=== PATIENT | male | born 1975 | race Caucasian/White ===

== ENCOUNTER 2020-04-24 21:37 | Emergency (ER) | payer BC, SELFPAY ==
[2020-04-24 21:37] VITALS: BP 148/100; PULSE 73; RESP 15; TEMP 36.7; O2SAT 97; BMI 31.5
--- NOTE | 2020-04-24 22:10 | EKG12_ITS ---
Test Reason : CP Blood Pressure : / mmHG Vent. Rate : 074 BPM Atrial Rate : 074 BPM P-R Int : 118 ms QRS Dur : 096 ms QT Int : 374 ms P-R-T Axes : 051 010 027 degrees QTc Int : 415 ms Normal sinus rhythm Incomplete right bundle branch block Borderline ECG Confirmed by BARRY BLANCAS, AMI ([id number]), film editor EZEKIEL CR ([id number]) on 04/28/2020 10:22:06 AM Referred By: NEIDA Confirmed By:SIMON REDDY MD
--- NOTE | 2020-04-24 22:17 | ED.DCSUM_ITS ---
- ER Visit Summary Date of Service: 04/24/20 Chief Complaint: Chest pain History of Present Illness: The patient is a 45 M who presents with chest pain and left arm pain that has been intermittent over the past 3 weeks. Patient states his pain is sharp and tight. Patient states the pain is over the left u pper chest and rates into his left shoulder and neck. Patient states nothing makes it better and nothing makes it worse. Patient admits to one episode of subjective chills. Patient states that at times he feels some palpitations where his heart feels like it is racing. Patient also admits to a mild headache. Patient states he feels weak at times. Physical Examination: Vital signs are stable. Patient is afebrile. Patient is in no acute distress. Oral mucosa is pink and moist. Neck is supple. Trachea is midline. There is no JVD noted. Heart was regular rate and rhythm. Lungs are clear and equal bilaterally. Abdomen is soft. Bowel sounds are normal. There is no tenderness. There is no rebound or guarding noted. Skin is warm dry. Cranial nerves II through XII are intact. There are no focal motor or sensory deficits noted. Extremities are intact. There is no calf tenderness or edema. Test Results: EKG was obtained. On my interpretation, there is a normal sinus rhythm with a rate of 74. There are no acute ST or T wave changes. This is unchanged compared to previous EKG dated 10/31/2004. CBC, basic metabolic profile, and troponin were obtained were all within normal limits. Portable chest x-ray was obtained. There is 1 view. On my interpretation, there are bilateral infiltrates. There is no cardiomegaly. Bony thorax is normal. Radiologist also interpreted the x-ray and agrees. Because of the bilateral infiltrates, a COVID-19 rapid antigen test was ordered but the patient refused. CBC shows a normal white blood cell count however the lymphocytes were low at 15.4% basic metabolic profile and troponin were normal. Emergency Department Course and Treatment: Patient was advised of his findings. Patient still refused the COVID-19 antigen test. Patient was advised that his chest x-ray is typical of Covid 19 pneumonia. Patient will be treated as a COVID-19 pneumonia. Patient was instructed to quarantine for the next 10 days. Patient was instructed to follow-up with his primary care physician in 5 to 7 days. Patient understood and was agreeable with the plan. All questions were answered. Disposition: Discharge home Impression: COVID-19 pneumonia This note was generated with [employer] dictation software. It may contain incorrect words, spelling, and punctuation that were not noted in review of the chart prior to signing ED Disposition - Plan for ED Patient: Disposition: Home or Assisted Living Diagnosis: Pneumonia due to COVID-19 virus Instructions: Coronavirus Disease 2019 (COVID-19): Overview, Coronavirus Disease 2019 (COVID-19): Caring for Yourself or Others Referrals: Care Physician,No Primary [Primary Care Provider] - 3-5 Days
--- NOTE | 2020-04-24 22:20 | RAD_ITS ---
CHEST, LEFT ARM AND SHOULDER PAIN X 3 WKS EXAMINATION/TECHNIQUE: XR Chest 1 View: COMPARISON: None FINDINGS: LINES/DEVICES: None. LUNGS: Bilateral airspace opacities most marked in the upper lung valles. No pneumothorax. MEDIASTINUM AND CARDIOVASCULAR STRUCTURES: Cardiac silhouette not enlarged. Central airways and mediastinal contour are unremarkable. BONES AND SOFT TISSUES: Unremarkable. RAD/Chest 1 View (Portable) IMPRESSION: Bilateral pulmonary infiltrates most marked in the upper lung valles at 2257 Reported and signed by: Naomi Linder DO Electronically Signed: Naomi Linder DO at 22:56 EST Tel , Service support ,
[2020-04-24] MEDS: Aspirin 81 MG TAB.CHEW 324 MG PO (22:22)
[2020-04-24 22:31] VITALS: O2SAT 97
[2020-04-24 22:33] LABS: Absolute Lymphocyte Count 0.75 X10^3/uL (0.83-4.51); Absolute Neutrophil Count 3.4 X10^3/uL (2.0-7.7); Basophil# 0.02 X10^3/uL; Basophil% 0.4 % (0-1); Eosinophil# 0.13 X10^3/uL; Eosinophils% 2.7 % (0-5); Hematocrit 46.8 % (40-54); Hemoglobin 15.9 g/dL (13.0-16.5); Lymphocyte # 0.75 X10^3/ul (4.0); Lymphocyte % 15.4 % (19-41); Mean Corpuscular Hgb 30.2 pg (27.0-32.0); Mean Platelet Vol. 9.5 fl (6.2-12.0); Monocyte# 0.57 X10^3/uL; Monocyte% 11.7 % (0-10); NRBC Flagged by Analyzer 0 % (0-5); Neutrophil # 3.37 X10^3/uL (2.7-7.7); Neutrophil % 69.2 % (47-70); Platelet Count 221 K/mm3 (150-450); RBC Distribution Width CV 12.4 % (11.6-14.6); RBC Distribution Width SD 40.3 fl (35.1-43.9); Red Blood Count 5.26 M/mm3 (4.6-6.2); White Blood Count 4.9 K/mm3 (4.4-11.0)
[2020-04-24 22:41] LABS: Anion Gap 5 (5-15); BUN 15 mg/dL (7-18); BUN/Creat Ratio 14.7 RATIO (10-20); Calcium,Total 9.2 mg/dL (8.5-10.1); Chloride 107 mmol/L (98-107); Creatinine, Serum 1.02 mg/dL (0.70-1.30); EST Glomerular Filtration Rate 84 mL/min (>60); Est Glom Filt Rate - Afr Amer 102 mL/min (>60); Estimated Creatinine Clearance 95.42 ml/min; Glucose 118 mg/dL (74-106); Sodium Level 140 mmol/L (136-145)
--- NOTE | 2020-04-24 23:47 | ED.RN ---
rn to bedside to obtain covid swab. patient refused. dr villela notified at this time.
[2020-04-24 23:56] VITALS: BP 131/87; PULSE 75; RESP 17; O2SAT 97
== END 2020-04-24 23:56 | disposition home or self-care (01) ==
PROVIDERS: Emergency Provider Emergency Medicine
DX: U07.1 COVID-19 (principal); J12.89 Other viral pneumonia
CPT/HCPCS: 71045; 80048; 84484; 85025; 93005; 99285; A4216